=== PATIENT | female | born 1950 | race Caucasian/White ===

== ENCOUNTER → 2021-12-15 | Outpatient (CLI) | payer MEDICARE, OTHER ==
[~2021-12-15] MED LIST: ASPIR 8181 MG PO; AZITHROMYCIN250 MG PO; BUDESONIDE0.5 MG/2 M NEB; DONEPEZIL HCL5 MG PO; FOLIC ACID 1 MG1 MG PO; HYDROXYZINE HCL50 MG PO; IPRAT-ALBUT 0.5-3 ML NEB; KEPPRA 500 MG500 MG GT; KEPPRA 500 MG500 MG PO; KLONOPIN1 MG PO; MEDROL4 MG PO; NICOTINE PATCH1 EAC2 TD; NITROSTAT0.4 MG SL; OMNICEF 300 MG300 MG PO; PRAVASTATIN SOD20 MG PO; PRINIVIL10 MG PO; PRINIVIL20 MG PO; PROTONIX40 MG PO; RANITIDINE HCL300 MG PO; RISPERDAL0.5 MG PO; SINGULAIR10 MG PO; SYNTHROID112 MCG PO; TAB-A-VITE1 EACH PO; VITAMIN B-1100 M1 PO; VITAMIN D350000 UNIT PO; ZANAFLEX4 MG PO; ZOLOFT100 MG PO; ZYVOX600 MG PO
== END ==
LOC: HEART CORB 09:30
DX: I25.10 Atherosclerotic heart disease of native coronary artery without angina pectoris (principal); R07.2 Precordial pain
CPT/HCPCS: 78452; A9502; J2785